=== PATIENT | female | born 1985 | race Two or more races ===

== ENCOUNTER 2023-10-17 12:45 | Emergency (ER) | payer OTHER | END 2023-10-17 14:20 | disposition home or self-care (01) | LOC: CSHERS 12:45 | DX: O12.03 Gestational edema, third trimester (principal); Z3A.37 37 weeks gestation of pregnancy ==

== ENCOUNTER 2023-11-01 18:00 | Inpatient (IN) | payer OTHER ==
[2023-11-02 00:24] VITALS: BMI 30.4
[2023-11-02] MEDS ORDERED: Diphenoxylate HCl/Atropine Tablet PO PRN (00:48)
[2023-11-02] MEDS ORDERED: Carboprost 250 MCG/ML AMP IM PRN (00:48)
[2023-11-02] MEDS ORDERED: Lidocaine 1% (PF) 30 ML VIAL SC PRN (00:48)
[2023-11-02] MEDS ORDERED: Misoprostol 200 MCG TAB PR PRN (00:48)
[2023-11-02] MEDS ORDERED: Tranexamic Acid 1,000 MG/10 ML VIAL IVP PRN (00:48)
[2023-11-02] MEDS ORDERED: Promethazine HCl 25 MG/ML VIAL IM PRN ×2 (00:48→13:18)
[2023-11-02] MEDS ORDERED: Ondansetron PF 4 MG/2 ML Vial IVP PRN ×2 (00:48→13:18)
[2023-11-02] MEDS ORDERED: hydrALAZINE 20 MG/ML VIAL SLOW IVP PRN ×2 (00:48→22:59)
[2023-11-02] MEDS ORDERED: Methylergonovine 0.2 MG/ML VIAL IM PRN (00:48)
[2023-11-02] MEDS ORDERED: Oxytocin 30 units/NS 500 ML 500 ML IV SCH ×2 (01:00)
[2023-11-02 01:04] LABS: Hematocrit 32.4 % (34.9-44.5); Hemoglobin 11.2 g/dL (12.0-15.5); Mean Corpuscular HGB CONC 34.6 g/dL (32.0-36.0); Mean Corpuscular Volume 89.8 fL (81.6-98.3); Mean Platelet Volume 10.2 fL (7.4-10.4); Platelet Count 287 10x3/uL (150-450); RBC Distribution Width 13.9 % (11.5-14.5); Red Blood Cell (RBC) Count 3.61 10x6/uL (3.90-5.03)
[2023-11-02 01:29] LABS: Syphilis Antibody Nonreactive (Nonreactive); Syphilis Antibody Index 0.06 S/CO (<1.00 Non-Reactive)
[2023-11-02 01:30] LABS: HBsAg Index 0.16 S/CO (0-0.99); Hep B Surf Ag - L&D Non-Reactive S/CO (NonReactive)
[2023-11-02 01:34] LABS: Glucose 94 mg/dL (70-105)
[2023-11-02] MEDS: Misoprostol 100 MCG TAB VAG SCH (01:40)
[2023-11-02 05:20] LABS: Amphetamine Not Detected (NotDetected); Barbiturates Screen Not Detected (NotDetected); Benzodiazepine Screen Not Detected (NotDetected); Cocaine Metabolite Screen Not Detected (NotDetected); Methadone Not Detected (NotDetected); Methamphetamine Not Detected (NotDetected); Opiate Screen Not Detected (NotDetected); Oxycodone Screen Not Detected (NotDetected); Phencyclidine (PCP) Not Detected (NotDetected); THC/Cannabinoid Screen Detected (NotDetected); Tricyclic Screen Not Detected (NotDetected)
[2023-11-02] MEDS: Acetaminophen 500 MG TAB PO PRN (06:22)
[2023-11-02] MEDS: fentaNYL 50 mcg/mL 1 mL Vial SLOW IVP SCH (08:05)
[2023-11-02] MEDS: fentaNYL 50 mcg/mL 1 mL Vial SLOW IVP PRN (10:40)
[2023-11-02] MEDS ORDERED: fentaNYL 50 mcg/mL 1 mL Vial SLOW IVP SCH (11:00)
[2023-11-02] MEDS ORDERED: Naloxone HCl 0.4 mg/ml Vial IVP PRN ×2 (13:18)
[2023-11-02] MEDS ORDERED: diphenhydrAMINE 50 MG/ML VIAL IVP PRN (13:18)
[2023-11-02] MEDS ORDERED: ePHEDrine Sulfate 50 MG/10 ML VIAL SLOW IVP PRN (13:18)
[2023-11-02] MEDS ORDERED: Moisturizing Cream (Eucerin) 113 GM JAR TOP PRN (13:18)
[2023-11-02] MEDS ORDERED: Lactated Ringer's 500 ML IV PRN (13:18)
[2023-11-02] MEDS ORDERED: Communication Order-Pharmacy FS SCH (13:30)
[2023-11-02] MEDS ORDERED: fentaNYL 2 mcg/Ropivacaine 0.2% Epidural 100 ML CADD EPIDURAL SCH (13:30)
[2023-11-02] MEDS: fentaNYL/Ropivacaine Epidural 100 ML ONE (13:40)
[2023-11-02] MEDS: Oxytocin 30 units/NS 500 ML 500 ML IV SCH (21:16)
[2023-11-02] MEDS ORDERED: Preparation H Ointment 28 GM TUBE PR PRN (22:59)
[2023-11-02] MEDS ORDERED: Bisacodyl 10 MG SUPP PR PRN (22:59)
[2023-11-02] MEDS ORDERED: Milk Of Magnesia 30 ML UDCUP PO PRN (22:59)
[2023-11-02] MEDS ORDERED: Lanolin Ointment 7 GM TUBE TOP PRN (22:59)
[2023-11-02] MEDS: Boostrix 0.5 ML (Tdap) VIAL (>/=7 yrs of age) IM ONE (23:03)
[2023-11-02] MEDS: Ibuprofen 800 MG TAB PO SCH (23:05)
[2023-11-03] MEDS: Ibuprofen 800 MG TAB PO SCH (06:12)
[2023-11-03] MEDS: Docusate 100 MG CAP PO SCH (08:38)
[2023-11-03] MEDS: Acetaminophen 325 MG TAB PO PRN (08:38)
[2023-11-03] MEDS: Prenatal Vitamin 1 TAB PO SCH (08:38)
[2023-11-03] MEDS: Ferrous Sulfate 325 MG TAB PO SCH (09:54)
[2023-11-03] MEDS ORDERED: Bupivacaine 0.25% HCL 30 ML VIAL ONE (16:00)
[2023-11-03] MEDS: Benzocaine-Menthol 82.5 ML CAN TOP PRN (22:05)
[2023-11-04 07:51] VITALS: BP 119/67; TEMP 97.6
== END 2023-11-04 14:59 | disposition home or self-care (01) | DRG 806 ==
LOC: UNDOADMIN 23:48 → CSHLD 23:48 → CSHPP 11-02 23:20
PROVIDERS: ADMIT Family Medicine; ATTEND Family Medicine
PROC: 10E0XZZ Delivery of Products of Conception, External Approach (ICD-10-PCS; principal; 2023-11-02)
DX: O24.425 Gestational diabetes mellitus in childbirth, controlled by oral hypoglycemic drugs (principal); O99.324 Drug use complicating childbirth; Z37.0 Single live birth; Z3A.39 39 weeks gestation of pregnancy; O99.02 Anemia complicating childbirth; D64.9 Anemia, unspecified; Z88.5 Allergy status to narcotic agent; Z79.84 Long term (current) use of oral hypoglycemic drugs; Z79.82 Long term (current) use of aspirin; Z79.899 Other long term (current) drug therapy; F12.90 Cannabis use, unspecified, uncomplicated
CPT/HCPCS: 36415; 36416; 51702; 80306; 82947; 85027; 86780; 86850; 86900; 86901; 87340; J0665; J2590; J3010